=== PATIENT | male | born 1980 | race Caucasian/White ===

== ENCOUNTER 2023-10-17 14:08 | Outpatient (CLI) | payer BC, SELFPAY | END 2023-10-17 14:09 | disposition home or self-care (01) | LOC: NFLDREF 10-20 02:43 | PROVIDERS: PCP Physician Assistant Medical; Referring Provider Physician Assistant Medical; Visit Provider Physician Assistant Medical | DX: I10 Essential (primary) hypertension (principal); E66.9 Obesity, unspecified; B07.9 Viral wart, unspecified | CPT/HCPCS: 80053; 80061; 84443 ==

== ENCOUNTER 2024-02-06 02:52 | Emergency (ER) | payer BC, SELFPAY ==
[2024-02-06 02:58] VITALS: BP 191/110; PULSE 106; RESP 22; TEMP 36.4; O2SAT 96; BMI 38.0
[2024-02-06] MEDS: predniSONE 20 MG TABLET 40 MG PO (03:23)
[2024-02-06] MEDS: KETOROLAC 30 MG/ML inj IM (03:23)
--- NOTE | 2024-02-06 03:28 | ED.GENADULT ---
HPI - General Adult General Chief complaint: Back Injury/Pain Stated complaint: severe back pain Time Seen by Provider: 02/06/24 03:02 Source: patient Mode of arrival: ambulatory Limitations: no limitations History of Present Illness HPI narrative: 43-year-old male presents the emergency department for evaluation of lower back pain. This is been an ongoing problem for 22 years but has flared for the past 24 hours. No new trauma or injury. Has known degenerative disc disease and prior anterior compression fractures in the mid lumbar region. He attributes this to old skateboarding injuries. He also has cervical degenerative disease. He also smokes. No loss of bowel or bladder function, no saddle numbness. Pain is in the left paraspinal muscle lumbar area and radiates into the left inner thigh. This is not entirely new but is significantly worse than usual. No numbness. Has difficulty walking due to the pain but there is no jennifer weakness in his legs. No fever. No other areas of pain. Has been intermittently using Tylenol and ibuprofen with no improvement of symptoms. Triage nurse advised him to go to the emergency department, the rationale is unclear. Has not attempted to make a new appointment with his primary care provider. He has done physical therapy in the past though not recently. It sounds as though he has also been recommended to consider injections but has not done so. Past medical history notable for hypertension. Claims he has not taken his antihypertensive medications in a couple of days. Prescribed hydrochlorothiazide, losartan amlodipine. Allergy to penicillin. Smoker. ROS is notable for the musculoskeletal symptoms as above. Otherwise negative for other generalized, neurological, skin, musculoskeletal or urinary changes. Related Data Previous Rx's ?Medication ?Instructions ?Recorded amlodipine 5 mg tablet 5 mg PO QHS #90 tabs 10/17/23 hydrochlorothiazide 25 mg tablet 25 mg PO QAM #30 tabs 12/14/23 losartan 100 mg tablet 100 mg PO QDAY #30 tabs 12/14/23 prednisone 20 mg tablet 20 mg PO BID #10 tabs 02/06/24 Allergies Allergy/AdvReac Type Severity Reaction Status Date / Time Penicillins Allergy Mild Verified 10/17/23 13:36 [facility] Surgical History History of dental surgery ?Z92.89 - Personal history of other medical treatment (ICD-10) History of torsion of testis ?Z87.438 - Personal history of other diseases of male genital organs (ICD-10) Social History Little interest or pleasure in doing things: not at all Feeling down, depressed, or hopeless: not at all Exam Const: Vital Signs, click to edit/add: Vital Signs - 24 hr 02/06/24 02:58 Temperature 97.5 F L Pulse Rate [Pulse Oximeter] 106 H Respiratory Rate 22 Blood Pressure [Ri ght Upper Arm] 191/110 H Pulse Oximetry 96 Oxygen Delivery Me thod Room Air Documenting provider has reviewed patient's vital signs: yes Common normals: alert Other: Antalgic gait but fully alert, no signs of intoxication. Insight fair. HENMT: Common normals: normocephalic Head and scalp: normocephalic Face and sinus: normal facial exam Mouth: oral and palatal mucosa normal Throat: posterior oropharynx normal Eye: Common normals: conjunctivae normal General eye: normal appearance of both eyes Conjunctiva: conjunctiva(e) normal Resp: Common normals: normal respiratory effort Effort & inspection: able to speak in complete sentences Cardio: Common normals: regular rate and regular rhythm Rate: regular rate Rhythm: regular rhythm Back & Pelvis: Other: No point bony tenderness to the thoracolumbar spine. Left-sided paraspinal muscle and left SI tenderness noted. Patient refuses remainder of exam of flexion, extension, straight leg lift due to pain. I do observe that is legs are moving without any deficit both flexion and extension, he can balance without significant difficulty. Extremity: Other: Mild venous stasis changes but good capillary refill in legs. No open sores or ulcerations. Neuro: Sensorium/orientation: alert Other: Antalgic gait but without focal deficit. Psych: Attitude: calm Insight: fair Judgement: fair Skin: Common normals: no rashes or lesions noted General skin exam: no rashes or lesions noted Course Course ED Course: 43-year-old male presenting with left lumbar radiculopathy. No red flags for cauda equinus syndrome, neurovascular compromise or other emergent spinal syndrome. Counseled patient on exam findings and history. Additional x-ray and imaging will not be useful as we already know he has a herniated disc. He did drive himself here and does need to drive himself home. Because of this, I am limited on what I can give him in the emergency department. Will give prednisone 40 mg p.o. x1 and a shot of 30 mg of IM Toradol. From [facility], he will get oxycodone 4 tablets total and 20 tablets of 10 mg Flexeril. He is counseled on Tylenol and ibuprofen. He is going to need to make a follow-up appoint with his primary care provider in 2 days to ensure that things are starting to improve on the prednisone. Off work for 2 days. He will likely benefit from referral for physical therapy, injections and or other treatments. He is encouraged to quit smoking and the rationale is discussed. Alarm symptoms reviewed that would warrant ED presentation. He verbalizes understanding and agreement. Counseled not to take the oxycodone and Flexeril until he is safely home. Vital Signs Vital signs: Initial Vital Signs Temperature 97.5 F L 02/06/24 02:58 Temperature Source Temporal Artery Scan 02/06/24 02:58 Pulse Rate 106 H 02/06/24 02:58 Respiratory Rate 22 02/06/24 02:58 Blood Pressure 191/110 H 02/06/24 02:58 Blood Pressure Mean 137 H 02/06/24 02:58 Blood Pressure Position Standing 02/06/24 02:58 Pulse Oximetry 96 02/06/24 02:58 Oxygen Delivery Method Room Air 02/06/24 02:58 Vital Signs Temperature 97.5 F L 02/06/24 02:58 Pulse Rate 106 H 02/06/24 02:58 Respiratory Rate 22 02/06/24 02:58 Blood Pressure 191/110 H 02/06/24 02:58 Pulse Oximetry 96 02/06/24 02:58 Oxygen Delivery Method Room Air 02/06/24 02:58 Temperature 97.5 F L 02/06/24 02:58 Pulse Rate 106 H 02/06/24 02:58 Respiratory Rate 22 02/06/24 02:58 Blood Pressure 191/110 H 02/06/24 02:58 Pulse Oximetry 96 02/06/24 02:58 Oxygen Delivery Method Room Air 02/06/24 02:58 Medications Administered Medications: Generic Name Dose Route Start Last Admin Trade Name Freq PRN Reason Stop Dose Admin Ketorolac Tromethamine 30 mg 02/06/24 03:18 02/06/24 03:23 Ketorolac 30 Mg/Ml Inj IM 02/06/24 03:19 30 mg ONCE ONE Administration Prednisone 40 mg 02/06/24 03:18 02/06/24 03:23 Prednisone 20 Mg Tablet PO 02/06/24 03:19 40 mg ONCE ONE Administration Discharge Plan Discharge Clinical Impression: Lumbar radiculopathy Patient Disposition: Home, Self-Care Condition: Stable Instructions: Lumbar Radiculopathy (ED), Lower Back Exercises (ED) Additional Instructions: As we discussed, your history and the prior MRI that you describe to me does fit clinically with what you have going on today. Unfortunately, arthritis in your back will flare up from time to time. It is a good idea the you discuss a long-term plan with your primary care provider and have prednisone on hand for these flares that will come on more as you age. For the pain, continue using Tylenol 1000 mg every 6 hours and or ibuprofen 600 mg every 6 hours. I have given you a very small supply of oxycodone which will be the limit of the narcotic medications that we can give here in the ED. he will have 4 tablets of this, when they are gone, you would need further refills from her primary care provider but only if they feel it is appropriate. I will also prescribe some Flexeril which is a muscle relaxant. You may use this up to 2 times daily for pain. I would recommend heat. No work today which is Monday. Attempt to return on Monday if able. Ongoing work clearance will need to come from her primary care doctor as well. We cannot clear you in the emergency department as we do not have continued follow-up with you to determine when is appropriate for you to return to work. Most importantly, we will start on prednisone. Prednisone as an anti-inflammatory medication that will help calm down some of the inflammation. This will not cure the arthritis in her back but it will hopefully reduce the swelling on the nerve to the point where was a few days ago, reducing her pain. It tends to take 1-2 days to provide relief. I will send a prescription for this to your local pharmacy. The dose you were given here in the ED will count as this morning's dose. Take another dose this afternoon, but not after 4:00 p.m.. Continue taking this twice daily for the next 5 days total. Follow-up with your primary care doctor in 2-3 days to ensure that things are improving. You will need a referral to physical therapy, better long-term planning for what to do with these flares and medication to have on hold at a pharmacy or on hand for when you get flares in the future. With arthritis in the back, you do tend to get worsening symptoms as you age. Consideration of referral for injections or other long-term treatment can also be considered. Additional x-rays performed in the emergency department will not change our course of action. Activity Level: Activity as Tolerated Discharge Diet: Regular Prescriptions: New prednisone 20 mg tablet 20 mg PO BID Qty: 10 0RF No Action amlodipine 5 mg tablet 5 mg PO QHS Qty: 90 0RF hydrochlorothiazide 25 mg tablet 25 mg PO QAM Qty: 30 0RF losartan 100 mg tablet 100 mg PO QDAY Qty: 30 0RF Follow Up/Referrals: Lissette Knight PA-C [Primary Care Provider] - Stand Alone Forms: [employer] Info Instructions
== END 2024-02-06 03:34 | disposition home or self-care (01) ==
PROVIDERS: Emergency Provider Family Medicine; PCP Physician Assistant Medical
DX: M54.16 Radiculopathy, lumbar region (principal)
CPT/HCPCS: 96372; 99283; J1885; J7512

== ENCOUNTER 2024-04-10 13:33 | Emergency (ER) | payer OTHER, SELFPAY ==
--- OUTSIDE RECORDS SUMMARY | 2024-04-10 13:36 | XMS_ITS | Encounter Summary ---
Author Organization [employer] Address [address] [place] [address] Care Team Providers Care Sack Department Supervisor Name Role Phone Ashok Eisenberg MD Primary Care Provider + [phone] Reason for Referral * Procedure/Equipment (Routine) - Incomplete Specialty Diagnoses / Procedures Referred By Contdora t Referred To Contact Diagnoses Cough, unspecified type SOB (shortness of breath) Procedures XR Chest 2 Views Adrian Hayes, NICOLE, PHLEBOTOMY MANAGER [address] [place] [address] Referral ID Status Reason Start Date Expiration Date V isits Requested Visits Authorized [id number] Incomplete 04/07/2024 07/07/2025 1 1 S CLEANER Reason for Visit * Reason Comments SOB (SHORTNESS OF BREATH) SOB came on , getting worse as of this morning, cough began yesterday, came on suddenly, no fever Denies chest pain, no cardiac hx Encounter Details Date Type Department Care Team (Late st Contact Info) Description 04/07/2024 9:40 AM BRASS CLEANER Office Visit [place] [facility] [address] [place] [phone] Adrian Hayes, NICOLE, PHLEBOTOMY MANAGER [address] [place] [address] Cough, unspecified type; SOB (shortness of breath) Social History Tobacco Use Types Packs/Day Years Used Date Smoking Tobacco: Never Smokeless Tobacco: Never Alcohol Use Standard Drinks/Week Comments No 0 (1 standard drink = 0.6 oz pur e alcohol) Haven't drank for a few months Sex and Gender Information Value Date Recorded Sex Assigned at Not on file Gender Identity Not on file Sexual Orientation Not on file documented as of this encounter Last Filed Vital Signs Vital Sign Reading Time Taken Comments Blood Pressure 136/81 04/07/2024 8:48 AM BRASS CLEANER Pulse 102 04/07/2024 8:48 AM BRASS CLEANER Temperature 37.4 C (99.3 F) 04/07/2024 8:48 AM BRASS CLEANER Respiratory Rate 20 04/07/2024 8:48 AM BRASS CLEANER Oxygen Saturation 93% 04/07/2024 8:48 AM BRASS CLEANER Inhaled Oxygen Concentration - - Weight - - Height - - Body Mass Index - - documented in this encounter Patient Instructions * Patient Instructions* Adrian Hayes, NICOLE, PHLEBOTOMY MANAGER - 04/07/2024 9:40 AM BRASS CLEANER *You may use gjwp-lfj-mhophqw cough and cold medicine such as DayQuil and NyQuil or their generic equivalents. (Remember that these medications often contain acetaminophen. You should not exceed 4000mg of acetaminophen daily) *You may also add in ibuprofen for any body aches. *For nasal congestion you may add and pseudoephedrine (short acting) (4 yrs +).. *Often even if you do not have known allergies there may be a allergy component and try an hqea-mio-zjdbqgu antihistamine such as Zyrtec, Lois, Xyzal, or Claritin (6 months +) can help. *You may also try Flonase (fluticasone) or similar (2 yrs +) . *Cough drops and throat lozenges as well as sprays can help if you have sore throat. *Nasal saline rinse. Vicks Vaporub *Viral illnesses frequently last a minimum of 5-7 days and often can last with lingering symptoms up to 2 weeks or more. Viral illnesses can also change. Follow up with primary care in 5-7 days if noimprovement or sooner if worsening. S CLEANER documented in this encounter Progress Notes * Adrian Hayes APRN, CNP - 04/07/2024 9:40 AM CST sIh Potts is a 44 y.o.male presents to the Urgent Care for SOB (SHORTNESS OF BREATH) (SOB came on yesterday, getting worse as of this morning, cough began yesterday, came on suddenly, no fever //Denies chest pain, no cardiac hx ) Subjective: Ish Potts is a 44 y.o. male presents for evaluation of shortness of breath and cough that started yesterday. He was advised by the nurse line to come in. Is a smoker. Does not have a history ofasthma. Does not report any significant fever feelings. No chest pain. Denies any cardiac history. No other concerns or complaints. Review of Systems: Review of systems otherwise negative unless noted in the HPI Medical History: Patient Active Problem List Diagnosis Episodic mood disorder (HRC) Amphetamine misuse Suicidal ideation Psychosis (HRC) Cannabis use disorder, severe, dependence (HRC) Asperger's syndrome Attention deficit hyperactivity disorder (ADHD), combined type (HRC) Behavior concern Depression with anxiety (HRC) Hypertension (HRC) Tourette's syndrome Thoracic radiculopathy Migraine headache GERD (gastroesophageal reflux disease) Social History: Social History Tobacco Use Smoking status: Never Smokeless tobacco: Never Substance Use Topics Alcohol use: No Comment: Haven't drank for a few months Adverse Drug Reactions: Lisinopril and Penicillins Medications: amLODIPine, citalopram, hydroCHLOROthiazide, losartan, melatonin, and risperiDONE Physical exam: Patient Vitals for the past 24 hrs: BP Temp Temp src Pulse Resp SpO2 04/07/24 0848 136/81 37.4 ??C (99.3 ??F) Tympanic (!) 102 20 93 % General: Alert, No obvious discomfort, well kept , obese HENT: Normal voice, No tonsillar enlargement, No lymphadenopathy, and Postnasal drainage, BilateralTM's with in normal, Mild congestion Eyes: Conjunctiva normal, No scleral icterus Neck: Normal range of motion, No menigismus CV: Normal Pulses Resp: Non-labored, Occasional and Dry cough Normal work of breathing and Decreased breath sounds throughout no wheezing. MS: Normal muscular tone, moves all extremities Skin: No rash or acute skin lesions noted Neuro: Speech is normal and fluent Psych: Awake. Alert. Normal affect. Appropriate interactions. Good eye contact Labs: LABS: No results found for any visits on 04/07/24. IMAGING: XR Chest 2 Views Result Date: 04/07/2024 COMPARISON: None. FINDINGS: Normal cardiomediastinal silhouette and pulmonary vasculature. The lungs appear clear. No pneumothorax or pleural effusion. Bony thorax is unremarkable. Images ordered and were independently reviewed. No acute infiltrate. Agree with radiologic over-read.. Patient feels somewhat improved after nebulizer. Breath sounds clear throughout. Still decreased. Likely due to body habitus. ASSESSMENT: MDM: The patient presents with symptoms and exam findings most consistent with uncomplicated viral upperrespiratory tract infection without evidence of respiratory compromise, clinical toxicity, or clinical dehydration. No findings to suggest severe sinusitis. Due to duration of symptoms and worsening of cough CXR was obtained and was Negative. Symptomatic and supportive care were discussed. Antibiotics not necessary at this time. A prescription for albuterol was provided. Follow-up with primary doctor was recommended should symptoms persist, and return should symptoms worsen. The patient should also return for signs of respiratory distress, dehydration, high fevers, severe facial pain, facial swelling, or for any other questions or concerns. Understanding of the discharge instructions was confirmed. Diagnosis and Associated Orders ICD-10-CM 1. Cough, unspecified type R05.9 albuterol 2.5 mg/3 mL (0.083%) (PROVENTIL) nebulizer solution 2.5 mg XR Chest 2 Views 2. SOB (shortness of breath) R06.02 albuterol 2.5 mg/3 mL (0.083%) (PROVENTIL) nebulizer solution 2.5 mg XR Chest 2 Views PLAN: There are no Patient Instructions on file for this visit. Orders Placed This Encounter Medications hydroCHLOROthiazide (ORETIC) 25 MG tablet Sig: Take 1 Tablet (25 mg) by mouth every morning. amLODIPine (NORVASC) 5 MG tablet Sig: Take 1 Tablet (5 mg) by mouth daily at bedtime. albuterol 2.5 mg/3 mL (0.083%) (PROVENTIL) nebulizer solution 2.5 mg We discussed contagiousness. You may use xqlz-bmz-kvfxcvb cough and cold medicine such as DayQuil and NyQuil or their generic equivalents. For nasal congestion you may add and pseudoephedrine (short acting). Often even if you do not have known allergies there may be a allergy component and try an ov jd-nmb-wukwqsi antihistamine such as Zyrtec, Lois, Xyzal, or Claritin can help. You may also tryFlonase (fluticasone). You may also add in ibuprofen for any body aches. Cough drops and throat lozenges as well as sprays can help if you have sore throat. Nasal saline rinse. Vicks Vaporub The patient was discharged ambulatory and in stable condition. If strep, COVID, or influenza testing was initiated. You will receive a call with any results that would require antibiotics. Otherwise follow-up on my chart. S CLEANER documented in this encounter Nursing Notes * Yojana Lucas RN - 04/07/2024 9:40 AM CST Ish Potts is a 44 y.o.male presents to the Urgent Care for SOB (SHORTNESS OF BREATH) (SOB came on yesterday, getting worse as of this morning, cough began yesterday, came on suddenly, no fever //Denies chest pain, no cardiac hx ) S CLEANER documented in this encounter Plan of Treatment Not on file documented as of this encounter Results * XR Chest 2 Views (04/07/2024 9:59 AM BRASS CLEANER) Anatomical Region Laterality Modality Chest, Lung Digital Radiogra phy 04/07/2024 9:54 AM BRASS CLEANER Narrative 04/07/2024 10:00 AM BRASS CLEANER COMPARISON: None. FINDINGS: Normal cardiomediastinal silhouette and pulmonary vasculature. The lungs appear clear. No pneumothorax or pleural effusion. Bony thorax is unremarkable. Procedure Note Christos Zuniga MD - 01/05/2025 COMPARISON: None. FINDINGS: Normal cardiomediastinal silhouette and pulmonary vasculature.The lungs appear clear. No pneumothorax or pleural effusion. Bony thoraxis unremarkable. Adrian Hayes APRN, PHLEBOTOMY MANAGER [facility] documented in this encounter Visit Diagnoses Diagnosis Cough, unspecified type SOB (shortness of breath) Shortness of breath Cough, unspecified type SOB (shortness of breath) Shortness of breath documented in this encounter Administered Medications Inactive Administered Medications - up to 3 most recent administrations Medication Order MAR Action Action Date Dose Rate Site albuterol 2.5 mg/3 mL (0.083%) (PROVENTIL) nebulizer solution 2.5 mg 2.5 mg, Inhalation, ONCE, On 04/07/24 at 1000, For 1 dose, Administer VIA RT Nebulization Given 04/07/2024 9:46 AM BRASS CLEANER 2.5 mg documented in this encounter Care Teams Sack Department Supervisor Relationship Specialty Start Date End Date Ashok Eisenberg MD [address] [place] [id number] PCP - General 06/30/20 documented as of this encounter
--- OUTSIDE RECORDS SUMMARY | 2024-04-10 13:36 | XMS_ITS | Clinical Summary ---
Author Organization [facility] Address [address] [place] [address] Care Team Providers Care Salesperson Floor Coverings Name Role Phone [facility] Primary Care Provide r Ashok Eisenberg MD Unavailable Allergies Active Allergy Reactions Criticality Noted Date Comments Hydrocodone 04/12/2018 Lisinopril Nausea 04/12/2018 Penicillins Rash Low 04/12/2018 Medications losartan (COZAAR) 100 MG tablet Take 100 mg by mouth daily Active citalopram (CELEXA) 40 MG tablet Take 40 mg by mouth daily Active prazosin (MINIPRESS) 1 MG capsuleIndicati ons:PTSD (post-traumatic stress disorder) Take 1 capsule (1 mg) by mouth At Bedtime 30 capsule 04/16/2018 Active OLANZapine (ZYPREXA) 10 MG tabletIndicatio ns:Autistic disorder, residual state,PTSD (post-traumatic stress disorder) Take 1 tablet (10 mg) by mouth 3 times daily as needed (anxiety, sleep) 90 tablet 04/16/2018 Active risperiDONE (RISPERDAL) 1 MG tabletIndicatio ns:Autistic disorder, residual state,PTSD (post-traumatic stress disorder) Take 1 tablet (1 mg) by mouth At Bedtime 30 tablet 04/16/2018 Active Active Problems Problem Noted Date Diagnosed Date Behavior concern 04/13/2018 Family History Medical History Relation Comments Suicide Father Anxiety Disorder Mother Depression Mother Anxiety Disorder Son Attention Deficit Disorder Son Autism Spectrum Disorder Son Relation Status Comments Father Mother Son Social History Tobacco Use Types Packs/Day Years Used Date Smoking Tobacco: Never Smokeless Tobacco: Never Alcohol Use Standard Drinks/Week Comments No 0 (1 standard drink = 0.6 oz pur e alcohol) AUDIT-C Answer Date Recorded Frequency of Alcohol Consumption Never 04/12/2018 Average Number of Drinks Not on file 019 Frequency of Binge Drinking Not on file 04/03 Sex and Gender Information Value Date Recorded Sex Assigned at Not on file Legal Sex Male 3:39 AM REFRIGERATION MECHANIC HELPER Gender Identity Not on file Sexual Orientation Not on file Last Filed Vital Signs Vital Sign Reading Time Taken Comments Blood Pressure 139/98 04/16/2018 3:58 PM REFRIGERATION MECHANIC HELPER Pulse 102 04/16/2018 3:58 PM REFRIGERATION MECHANIC HELPER Temperature 36.7 C (98 F) 04/16/2018 3:58 PM REFRIGERATION MECHANIC HELPER Respiratory Rate 16 04/16/2018 3:58 PM REFRIGERATION MECHANIC HELPER Oxygen Saturation 97% 04/14/2018 4:09 PM REFRIGERATION MECHANIC HELPER Inhaled Oxygen Concentration - - Weight 102.1 kg (225 lb) 04/14/2018 8:00 AM REFRIGERATION MECHANIC HELPER Height - - Body Mass Index - - Plan of Treatment Not on file Advance Directives For more information, please contact: [phone] * Full Code (Latest Code Status on File) Date Activated Date Inactivated Comments 04/16/2018 10:58 AM Question Answer Comments Code status determined by: Discussion with edna nt/legal decision maker * Full Code Date Activated Date Inactivated Comments 04/13/2018 4:21 AM 04/16/2018 10:58 AM Question Answer Comments Code status determined by: Discussion with edna nt/legal decision maker Care Teams Salesperson Floor Coverings Relationship Specialty Start Date End Date [facility], [facility] [place] [address] PCP - General 04/12/18 Ashok Eisenberg MD [facility] [place] [address] [facility] [address] [place] [address] PCP - Mental Health/Behavioral Medicine Psychiatry 04/14/18
--- OUTSIDE RECORDS SUMMARY | 2024-04-10 13:36 | XMS_ITS | Encounter Summary ---
Author Organization [facility] Address [address] [place] [address]. [place] [address] Care Team Providers Care Senior Civil Engineer Name Role Phone Clinic, [facility] Primary Care Provide r Ashok Eisenberg MD Unavailable Reason for Visit * Reason Onset Date Comments MH/CD Inpatient 04/12/2018 Encounter Details Date Type Department Care Team ([facility] st Contact Info) Description 04/12/2018 Telephone [facility] Behavioral Health Intake [address] [place] [phone] Generic, Behavioral Intake, MD MH/CD Inpatient Social History Tobacco Use Types Packs/Day Years [...] on file Legal Sex Male 3:39 AM FIRE FIGHTERS DISPATCHER Gender Identity Not on file Sexual Orientation Not on file documented as of this encounter Miscellaneous Notes * Telephone Encounter - Joseph Danielle - 04/12/2018 10:58 PM FIRE FIGHTERS DISPATCHER S: DEC called at [address] a 38 y/o male for inpatient mental health treatment. B: Pt was BIB EMS for evaluation of psychosis. Pt's girlfriend called patients parents to tell themthat pt was out of control, he had drank a whole bottle of CBD oil. Parents picked up the pt and attempted to bring him to the ED but pt was behaving erratically in the car and was attempting to interfere with the taxi cab driver. Pt's parents pulled over and called EMS to have pt brought to the ED. Pt appears disorganized and psychotic in the ED. Pt talking in gibberish. UDS is positive for cannabinoids.Pt has been medically cleared. A: Emergency Hold. R: 12/[place]. Unit notified at 2302, RN states that overnight RN will determine time of admission. ED notified at 2310. FIGHTERS DISPATCHER documented in this encounter Plan of Treatment Not on file documented as of this encounter Visit Diagnoses Not on filedocumented in this encounter Care Teams Senior Civil Engineer Relationship Specialty Start Date End Date Clinic, [facility]ja Patel [address] [place] [phone] PCP - General 04/12/18 Ashok Eisenberg MD [facility] [address] [facility] [address] [place] [address] PCP - Mental Health/Behavioral Medicine Psychiatry 04/14/18 documented as of this encounter
--- OUTSIDE RECORDS SUMMARY | 2024-04-10 13:36 | XMS_ITS | Clinical Summary ---
Author Organization [facility] Address [place], [place] [address] Care Team Providers Care Supervisor Feed House Name Role Phone Pcp, No Primary Care Provider Unavailabl e Allergies Active Allergy Reactions Criticality Noted Date Comments Lisinopril Nausea Only 07/08/2011 Penicillins Rash 01/16/2007 Hydrocodone-Acetaminophen Other - Descri be In Comment Field 07/08/2011 Jittery Medications citalopram (CELEXA) 40 mg tabletIndication s:Depression with anxiety,Asperger 's syndrome Take 1 tablet by mouth every morning. 0 10/18/2017 Active Melatonin 5 mg tab Take 5 mg by mouth. Active OLANzapine (ZYPREXA, FILM COATED TABLET,) 10 mg tablet Take 2.5 mg by mouth. 04/16/2018 Active buPROPion (WELLBUTRIN XL) 300 mg Extended-Release tablet TAKE 1 TABLET BY MOUTH IN THE MORNING 11 11/01/2018 Active losartan (COZAAR) 100 mg tabletIndication s:Hypertension, unspecified type Take 1 tablet by mouth once daily 30 tablet 09/05/2019 Active Active Problems Problem Noted Date Diagnosed Date Tourette's syndrome 03/08/2017 Insomnia 09/16/2016 Attention deficit hyperactiv ity disorder (ADHD), combined type 09/02/2016 Asperger's syndrome 09/02/2016 Thoracic radiculopathy 08/26/2015 GERD (gastroesophageal reflux disease) 4 Depression with anxiety 08/08/2013 Migraine, unspecified, witho ut mention of intractable migraine without mention of status migrainosus 06/22/2010 Hypertension 06/30/2008 Immunizations Name Administration Dates Next Due Tdap 07/06/2011,01/16/2007 Family History Medical History Relation Name Comments Hypertension Maternal Grandmother Hypertension Paternal Grandfather Hypertension Paternal Grandmother Lupus Sister 1 Rheum arthritis Sister 1 Depression Son 1 Relation Name Status Comments Brother Alive Father Maternal Grandfather Maternal Grandmother Alive Mother Alive Paternal Grandfather Alive Paternal Grandmother Alive Sister 1 Alive Sister 2 Alive Son 1 Alive Son 2 Alive Social History Tobacco Use Types Packs/Day Years Used Date Smoking Tobacco: Former Cigarettes Q uit: 05/10/2001 Smokeless Tobacco: Never Tobacco Cessation:Counseling Given: Yes Alcohol Use Standard Drinks/Week Comments No 0 (1 standard drink = 0.6 oz pur e alcohol) social PHQ-2 Answer Date Recorded PHQ-2 Score 0 06/04/2018 Sex and Gender Information Value Date Recorded Sex Assigned at Not on file Legal Sex Male 7:02 AM MANAGER TALENT Gender Identity Not on file Sexual Orientation Not on file Occupation Industry Job Start Date Job End Date Not on file Not on file Not on file Not on file Obstetrics History Last Filed Vital Signs Vital Sign Reading Time Taken Comments Blood Pressure 140/90 02/21/2019 1:19 PM MANAGER TALENT Pulse 84 02/21/2019 1:19 PM MANAGER TALENT Temperature 36.7 C (98.1 F) 02/27/2017 4:53 PM MANAGER TALENT Respiratory Rate 16 02/21/2019 1:19 PM MANAGER TALENT Oxygen Saturation 98% 07/06/2017 8:53 AM CDT Inhaled Oxygen Concentration - - Weight 108.9 kg (240 lb) 02/21/2019 1:19 PM MANAGER TALENT Height 177.8 cm (5' 10) 02/21/2019 1:19 PM MANAGER TALENT Body Mass Index 34.44 02/21/2019 1:19 PM MANAGER TALENT Plan of Treatment Health Maintenance Due Date Last Done Comments HIV for age 15-65 1995 Hepatitis C screening for age 18-79 1998 Depression screening for age 12+ 04/13/2019 04/13/2018, 04/11/2018, 10/18/2017, Additional history exists Lipids for age 35-44 05/20/2019 05/20/2014, 05/20/2014, 08/08/2013 BMI (ht and wt on same day) for age 18+ 02/22/2020 02/21/2019, 04/11/2018, 10/18/2017, Additional history exists Tetanus booster 07/05/2021 07/06/2011, 01/16/2007 COVID-19 vaccine series (2023- season) 2023 Influenza for age 9-49 12/03/2023 Tdap Completed 07/06/2011, 01/16/2007 Pneumococcal series for age 6-49 Aged Out No longer eligible based on patient's age to complete this topic Goals Goal Patient Goal Type Associated Problems Recent Progress Patient-Stated? Author BLOOD PRESSURE - MAINTAINS BP less than 140/90 Blood Pressure No Hemant Mccauley MD Procedures Procedure Name Priority Date/Time Associated Diagnosis Comments LIPID PANEL W REFLEX MEASURED LDL Routine 05/20/2014 10:13 AM MANAGER TALENT Hyperlipidemia from Last 3 Months or Most Recently Relevant to Health Maintenance Results * (ABNORMAL) LIPID PANEL W REFLEX MEASURED LDL (05/20/2014 10:13 AM MANAGER TALENT) CHOLESTEROL,TOTAL 238(H) 100 - 199 mg/dL 05/20/2014 11:04 AM [facility] TRIGLYCERIDES 498(H) <150 mg/dL 05/20/2014 11:04 AM [facility] HDL CHOLESTEROL 36(L) >40 mg/dL 5 11:04 AM [facility] NON-HDL CHOLESTEROL 202(H) <145 mg/dl 05/20/2014 11:04 AM [facility] CHOL/HDL RATIO 6.61(H) <4.50 05/20/2014 11:04 AM [facility] LDL CHOLESTEROL 5 11:04 AM [facility] Comment:Invalid LDL when Tri g >400, reflexed to measured LDL PATIENT STATUS NON-FASTI NG 05/20/2014 11:04 AM [facility] Blood specimen (specimen) BLOOD SPECIMEN / Unknown Venipuncture / Unknown 05/20/2014 10:13 AM MANAGER TALENT 05/20/2014 10:14 AM MANAGER TALENT us Hemant Mccauley MD CHEMISTRY Final Resul t [facility] [address] [place] [address], [place] [phone] from Last 3 Months or Most Recently Relevant to Health Maintenance Insurance FED EMP FED EMP * Guarantor: TOSHA RYAN ONLY Account Type Relation to Patient Date of Phone Billing Address [facility] [address] [place] [address] * Guarantor: ARCHIE DOMÍNGUEZ Account Type Relation to Patient Date of Phone Billing Address [facility] [address] [address] * Guarantor: TOSHA YOUNG Account Type Relation to Patient Date of Phone Billing Address [facility] [address] [place] [address] Care Teams Supervisor Feed House Relationship Specialty Start Date End Date Pcp, No . PCP - General 07/10/20
--- OUTSIDE RECORDS SUMMARY | 2024-04-10 13:36 | XMS_ITS | Encounter Summary ---
Author Organization [facility] Address [address] [place] [address] Care Team Providers Care Data Mining Analyst Name Role Phone Ashok Eisenberg MD Primary Care Provider + [phone] Reason for Visit * Reason Comments SOB (SHORTNESS OF BREATH) Encounter Details Date Type Department Care Team (Late st Contact Info) Description 04/07/2024 Nurse Triage [facility] [address] [facility] [address] [place] [address] Needs Pcp, [place], [place] [id number] SOB (SHORTNESS OF BREATH) Social History Tobacco Use Types Packs/Day Years [...] on file documented as of this encounter Nursing Notes * Gina Ortiz RN - 04/07/2024 8:16 AM CST Reason for Disposition [1] MODERATE difficulty breathing (e.g., speaks in phrases, SOB even at rest, pulse 100-120) AND [2] NEW-onset or WORSE than normal Protocols used: Breathing [id number] Pt called states that he developed a cough and now has shortness of breath. Pt states that he is unable to take a deep breath and he feels lightheaded. Pt agrees with the plan to be seen now. ENTER MOLD * Roxi Gagnon - 04/07/2024 8:12 AM CST Symptoms Describe your symptoms (if pain, include location): Cough and SOB When did they start? Yesterday Additional comments (related to the above concern): Is it okay to leave a detailed message on your voicemail? Yes Insurance verified and confirmed with patient? Insurance/information not available at time of the call ENTER MOLD documented in this encounter Plan of Treatment Not on file documented as of this encounter Visit Diagnoses Not on filedocumented in this encounter Care Teams Data Mining Analyst Relationship Specialty Start Date End Date Ashok Eisenberg MD [address] [place] [address] PCP - General 06/30/20 documented as of this encounter
--- OUTSIDE RECORDS SUMMARY | 2024-04-10 13:36 | XMS_ITS | Encounter Summary ---
Author Organization [facility] Address [address] [place] [address] Care Team Providers Care Recyclable Products Sorter Name Role Phone Clinic, [facility] Primary Care Provide r Ashok Eisenberg MD Unavailable [phone] Reason for Visit * Reason Onset Date Comments Outpatient 04/16/2018 IOP ref from Encounter Details Date Type Department Care Team (Late st Contact Info) Description 04/16/2018 Telephone [facility] Behavioral Health Intake [address] [place] [phone] Generic, Behavioral Intake, Outpatient (IOP ref from ) Social History Tobacco Use Types Packs/Day Years [...] on file Legal Sex 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 B-Pt was admitted to [facility] under Dr Arzate's care. A-IOP referral. Discharged today. R-[place] benefits. Referral made to IOP. RAL PROCESSING TECHNICIAN documented in this encounter Plan of Treatment Not on file documented as of this encounter Visit Diagnoses Not on filedocumented in this encounter Care Teams Recyclable Products Sorter Relationship Specialty Start Date End Date Clinic, [facility] [place] [facility] [place], [place] [phone] PCP - General 04/12/18 Ashok Eisenberg MD [facility] [address] [facility] [address] [place] [address] PCP - Mental Health/Behavioral Medicine Psychiatry 04/14/18 documented as of this encounter
--- OUTSIDE RECORDS SUMMARY | 2024-04-10 13:36 | XMS_ITS | Encounter Summary ---
Author Organization [facility] Address [address] [place] [address] Care Team Providers Care Supervisor Riprap Placing Name Role Phone Ashok Eisenberg MD Primary Care Provider + [phone] Encounter Details Date Type Department Care Team (Late st Contact Info) Description 04/09/2018 Consent for Procedure/Treatme nt [facility] INFORMED CONSENT NEUROLEPTIC MEDICATIONS Social History Tobacco Use Types Packs/Day Years [...] on file documented as of this encounter Plan of Treatment Not on file documented as of this encounter Visit Diagnoses Not on filedocumented in this encounter Care Teams Supervisor Riprap Placing Relationship Specialty Start Date End Date Ashok Eisenberg MD [address] [place] [address] PCP - General 06/30/20 documented as of this encounter
--- OUTSIDE RECORDS SUMMARY | 2024-04-10 13:36 | XMS_ITS | Clinical Summary ---
Author Organization [facility] Address [address] [place] [address] Care Team Providers Care Preassembler And Inspector Name Role Phone Ashok Eisenberg MD Primary Care Provider + [phone] Source Comments You are receiving this document as you are listed as the primary care provider,follow-up provider, or the patient has been referred to you for consultation.This is in compliance with the Medicare and[facility] Cent[facility]aid EHR Incentive Program,which states Providers who transition their patient to another setting of careor provider of care or refers their patient to another provider of care shouldprovide summary care record for each transition of care or referral. [employer] Allergies Active Allergy Reactions Criticality Noted Date Comments Lisinopril Other, see comments 12/07/2015 Flushed face Penicillins Rash 12/07/2015 Medications Medication Sig Dispensed Refills Start Date End Date Status citalopram (CELEXA) 40 MG tablet Take 40 mg by mouth daily. Active losartan (COZAAR) 100 MG tablet Take 1 Tablet (100 mg) by mouth daily. Active melatonin 5 MG tablet Take 1 Tablet (5 mg) by mouth at bedtime as needed. Active risperiDONE (RISPERDAL) 1 MG tabletIndications:M ood Take 1 Tablet by mouth daily at bedtime. Indications: Mood 30 Tablet 04/11/2018 Active Additional Information Patient not taking.Reported on 04/07/2024 hydroCHLOROthiazide (ORETIC) 25 MG tablet Take 1 Tablet (25 mg) by mouth every morning. 04/05/2024 Active amLODIPine (NORVASC) 5 MG tablet Take 1 Tablet (5 mg) by mouth daily at bedtime. 10/18/2023 Active ALBUterol sulfate HFA 108 (90 Base) MCG/ACT inhaler Inhale 1-2 Puffs every 4 hours as needed for Wheezing. 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 Suicidal ideation 02/28/2017 Asperger's syndrome 09/02/2016 Attention deficit hyperactiv ity disorder (ADHD), combined type 09/02/2016 Thoracic radiculopathy 08/26/2015 Depression with anxiety 08/08/2013 GERD (gastroesophageal reflux disease) 4 Migraine headache 06/22/2010 Hypertension 06/30/2008 Encounters Date Type Department Care Team Description 04/07/2024 9:45 AM MINIATURE TRAIN DRIVER Ancillary Procedure [facility] [address] [place] [address] Adrian Hayes, TONE REGULATOR, MICROCHIP SPECIALIST Cough, unspecified type; SOB (shortness of breath) 04/07/2024 9:40 AM MINIATURE TRAIN DRIVER Office Visit [facility] [address] [facility] [address] [place] [phone] Adrian Hayes, TONE REGULATOR, MICROCHIP SPECIALIST Cough, unspecified type; SOB (shortness of breath) 04/07/2024 Nurse Triage [facility] [address] [facility] [address] [place] [phone] Needs Pcp, Assignment SOB (SHORTNESS OF BREATH) from Last 3 Months Immunizations Name Administration Dates Next Due Tdap 07/06/2011 Social History Tobacco Use Types Packs/Day Years [...] Comments Blood Pressure 136/81 04/07/2024 8:48 AM MINIATURE TRAIN DRIVER Pulse 102 04/07/2024 8:48 AM MINIATURE TRAIN DRIVER Temperature 37.4 C (99.3 F) 04/07/2024 8:48 AM MINIATURE TRAIN DRIVER Respiratory Rate 20 04/07/2024 8:48 AM MINIATURE TRAIN DRIVER Oxygen Saturation 93% 04/07/2024 8:48 AM MINIATURE TRAIN DRIVER Inhaled Oxygen Concentration - - Weight 100.7 kg (222 lb) 04/09/2018 7:33 PM MINIATURE TRAIN DRIVER Height 177.8 cm (5' 10) 04/09/2018 7:33 PM MINIATURE TRAIN DRIVER Body Mass Index 31.85 04/09/2018 7:33 PM MINIATURE TRAIN DRIVER Plan of Treatment Health Maintenance Due Date Last Done Comments Hep C Screening (Preventive Services) 1980 HIV Screening (Preventive Services) 1996 Adult Preventive Visit 1998 HepB (1) 1999 Cholesterol 2015 COVID-19 Vaccine (2 - 2023-2 5 season) 2023 08/12/2020 Influenza (#1) 2023 Zoster/Shingles (1 of 2) 2030 DTaP/Tdap/Td (4 - Tdap) 09/11/2033 09/12/19 24, 07/06/2011, 01/16/2007 HepA Aged Out 07/22/2020 No longer eligi ble based on patient's age to complete this topic HPV Vaccine Aged Out No longer eligi ble based on patient's age to complete this topic Hib Aged Out No longer eligi ble based on patient's age to complete this topic IPV (Polio) Aged Out No longer eligi ble based on patient's age to complete this topic MCV4 Aged Out No longer eligi ble based on patient's age to complete this topic Pneumococcal Aged Out No longer eligi ble based on patient's age to complete this topic Procedures Procedure Name Priority Date/Time Associated Diagnosis Comments XR CHEST 2 VIEWS STAT 04/07/2024 9:59 AM MINIATURE TRAIN DRIVER Cough, unspecified type SOB (shortness of breath) from Last 3 Months Results * XR Chest 2 Views (04/07/2024 9:59 AM MINIATURE TRAIN DRIVER) Anatomical Region Laterality Modality Chest, Lung Digital Radiogra phy 04/07/2024 9:54 AM MINIATURE TRAIN DRIVER Narrative 04/07/2024 10:00 AM MINIATURE TRAIN DRIVER COMPARISON: None. FINDINGS: Normal cardiomediastinal silhouette and pulmonary vasculature. The lungs appear clear. No pneumothorax or pleural effusion. Bony thorax is unremarkable. Procedure Note Christos Zuniga MD - 04/07/2024 COMPARISON: None. FINDINGS: Normal cardiomediastinal silhouette and pulmonary vasculature.The lungs appear clear. No pneumothorax or pleural effusion. Bony thoraxis unremarkable. Adrian Hayes TONE REGULATOR, MICROCHIP SPECIALIST RAD GD from Last 3 Months Advance Directives * Full Code (Latest Code Status on File) Date Activated Date Inactivated Comments 04/09/2018 6:38 PM 04/11/2018 2:22 PM * Full Code Date Activated Date Inactivated Comments 02/28/2017 2:58 PM 03/03/2017 2:57 PM Care Teams Preassembler And Inspector Relationship Specialty Start Date End Date Ashok Eisenberg MD [address] [place] [address] PCP - General 06/30/20
--- OUTSIDE RECORDS SUMMARY | 2024-04-10 13:36 | XMS_ITS | Encounter Summary ---
Author Organization [facility] Address [address] [place] [address] Care Team Providers Care Drywall Application Supervisor Name Role Phone Ashok Eisenberg MD Primary Care Provider + [phone] Encounter Details Date Type Department Care Team (Late st Contact Info) Description 04/09/2018 Hospital [facility] RH USE OF RESTRAINTS/ALTERNATIVES PATIENT/FAMILY ED Social History Tobacco Use Types Packs/Day Years [...] on filedocumented in this encounter Care Teams Drywall Application Supervisor Relationship Specialty Start Date End Date Ashok Eisenberg MD [address] [place] [address] PCP - General 06/30/20 documented as of this encounter
--- OUTSIDE RECORDS SUMMARY | 2024-04-10 13:36 | XMS_ITS | Encounter Summary ---
Author Organization [facility] Address [address] [place] [address] Care Team Providers Care Boiler Installer Name Role Phone Ashok Eisenberg MD Primary Care Provider + [phone] Encounter Details Date Type Department Care Team (Late st Contact Info) Description 12/19/2016 Scanned History External to External, [place] [address] [facility] Social History Tobacco Use Types Packs/Day Years Used Date Smoking Tobacco: Never Smokeless Tobacco: Never Alcohol Use Standard Drinks/Week Comments Yes 0 (1 standard drink = 0.6 oz pur e alcohol) Sex and Gender Information Value Date Recorded Sex Assigned at Not on file Gender Identity Not on file Sexual Orientation Not on file documented as of this encounter Plan of Treatment Not on file documented as of this encounter Visit Diagnoses Not on filedocumented in this encounter Care Teams Boiler Installer Relationship Specialty Start Date End Date Ashok Eisenberg MD [address] [place] [address] PCP - General 06/30/20 documented as of this encounter
--- OUTSIDE RECORDS SUMMARY | 2024-04-10 13:36 | XMS_ITS | Encounter Summary ---
Author Organization [facility] Address [address] [place] [address] Care Team Providers Care Button Bradder Name Role Phone Ashok Eisenberg MD Primary Care Provider + [phone] Reason for Visit * Procedure/Equipment (Routine) - Incomplete Specialty Diagnoses / Procedures Referred By Ricki t Referred To Contact Diagnoses Cough, unspecified type SOB (shortness of breath) Procedures XR Chest 2 Views Adrian Hayes, ENVIRONMENTAL HEALTH INSPECTOR, SENIOR CREDIT ANALYST [address] [place] [address] Referral ID Status Reason Start Date Expiration Date V isits Requested Visits Authorized [id number] Incomplete 04/07/2024 07/07/2025 1 1 Encounter Details Date Type Department Care Team (Latest Contact Info) Description 04/07/2024 9:45 AM ESCROW OFFICER Ancillary Procedure [facility] [address] [place] [address] Adrian Hayes, ENVIRONMENTAL HEALTH INSPECTOR, SENIOR CREDIT ANALYST [address] [place] [address] Cough, unspecified type; SOB (shortness [...] on file documented as of this encounter Procedures Procedure Name Priority Date/Time Associated Diagnosis Comments XR CHEST 2 VIEWS STAT 04/07/2024 9:59 AM ESCROW OFFICER Cough, unspecified type SOB (shortness of breath) documented in this encounter Results * XR Chest 2 Views (04/07/2024 9:59 AM ESCROW OFFICER) Anatomical Region Laterality Modality Chest, Lung Digital Radiogra phy 04/07/2024 9:54 AM ESCROW OFFICER Narrative 04/07/2024 10:00 AM ESCROW OFFICER COMPARISON: None. FINDINGS: Normal cardiomediastinal silhouette and pulmonary vasculature. The lungs appear clear. No pneumothorax or pleural effusion. Bony thorax is unremarkable. Procedure Note Christos Zuniga MD - 04/07/2024 COMPARISON: None. FINDINGS: Normal cardiomediastinal silhouette and pulmonary vasculature.The lungs appear clear. No pneumothorax or pleural effusion. Bony thoraxis unremarkable. Adrian Hayes ENVIRONMENTAL HEALTH INSPECTOR, SENIOR CREDIT ANALYST RAD GD documented in this encounter Visit Diagnoses Diagnosis Cough, unspecified type SOB (shortness of breath) Shortness of breath documented in this encounter Care Teams Button Bradder Relationship Specialty Start Date End Date Ashok Eisenberg MD [address] [place] [address] PCP - General 06/30/20 documented as of this encounter
--- OUTSIDE RECORDS SUMMARY | 2024-04-10 13:36 | XMS_ITS | Referral Summary ---
Author Organization [facility] Address [address] [place] [address] Care Team Providers Care Chemist Physical Name Role Phone Clinic, P[facility]ja Patel Primary [...] Noted Date Diagnosed Date Behavior concern 04/13/2018 Social History Tobacco Use Types Packs/Day Years [...] on file Legal Sex Male 3:39 AM PROVIDER SCRIBE Gender Identity Not on file Sexual Orientation Not on file Last Filed Vital Signs Vital Sign Reading Time Taken Comments Blood Pressure 139/98 04/16/2018 3:58 PM PROVIDER SCRIBE Pulse 102 04/16/2018 3:58 PM PROVIDER SCRIBE Temperature 36.7 C (98 F) 04/16/2018 3:58 PM PROVIDER SCRIBE Respiratory Rate 16 04/16/2018 3:58 PM PROVIDER SCRIBE Oxygen Saturation 97% 04/14/2018 4:09 PM PROVIDER SCRIBE Inhaled Oxygen Concentration - - Weight 102.1 kg (225 lb) 04/14/2018 8:00 AM PROVIDER SCRIBE Height - - Body Mass Index - - Plan of Treatment Not on file Advance Directives For more information, please contact: [phone] * Full Code (Latest Code Status on File) Date Activated Date Inactivated Comments 04/16/2018 10:58 AM Question Answer Comments Code status determined by: Discussion with edna nt/legal decision maker * Full Code Date Activated Date Inactivated Comments 04/13/2018 4:21 AM 04/16/2018 10:58 AM Question Answer Comments Code status determined by: Discussion with edna nt/legal decision maker Care Teams Chemist Physical Relationship Specialty Start Date End Date [facility], Pooja Patel [facility] [place] [address] PCP - General 04/12/18 Ashok Eisenberg MD [facility] [address] [facility] [address] [place] [address] PCP - Mental Health/Behavioral Medicine Psychiatry 04/14/18
[2024-04-10 13:39] VITALS: BP 100/69; PULSE 96; RESP 20; TEMP 36.2; O2SAT 96; BMI 38.7
[2024-04-10 14:30] LABS: PCR FLU A POSITIVE PCR FLU A (Negative); PCR FLU B Negative PCR FLU B (Negative); PCR RSV Negative PCR RSV (Negative); SARS PCR* Negative SARS-CoV-2 (Negative)
--- NOTE | 2024-04-10 14:49 | CRLHL7_ITS ---
For Patients: As a result of the Cures Act, medical imaging exams and procedure reports are released immediately into your electronic medical record. You may view this report before your referring provider. If you have questions, please contact your health care provider. INDICATION: : SOB, chest pain COMPARISON: None TECHNIQUE: Two view(s) of the chest FINDINGS: The cardiomediastinal silhouette and pulmonary vasculature are unremarkable. There is no focal airspace consolidation, pleural effusion, or pneumothorax. No displaced fractures. IMPRESSION: No acute cardiopulmonary process. Dictated by Ish Torres MD @ 04/10/2024 3:20:35 PM (Electronically Signed)
--- NOTE | 2024-04-10 14:53 | ED.GENADULT ---
HPI - General Adult General Date Seen: 04/10/24 Chief complaint: Weakness Stated complaint: cough, weakness Time Seen by Provider: 04/10/24 13:56 Source: patient Mode of arrival: ambulatory Limitations: no limitations History of Present Illness HPI narrative: Patient is a 44-year-old male presenting to the emergency department for flu-like symptoms. States he was trying to make an appointment with the [facility] today when he was told to come to the emergency department. States since the 4th he has been having shortness of breath, lightheadedness, headache, CP, intermittent chest pain. Is not having any chest pain right now. States he thinks is very dehydrated because he has not been able to eat or drink much. Does not think he has been nauseated just feels again has no appetite. Has not noticed any fevers but has had chills. States he has a headache. He has had migraines before he states his headache does not seem nearly as bad. Thinks is also from his dehydration. Is not aware of any other sick contacts. Denies weakness, numbness, vision changes, diarrhea, constipation, abdominal pain, dysuria. No other concerns noted. Denies history of blood clots, recent surgery, hemoptysis, lower extremity swelling. Related Data Home Medications ?Medication ?Instructions ?Recorded ?Confirmed albuterol sulfate 90 mcg/actuation 1 - 2 puff inhalation Q4H PRN 04/10/24 04/10/24 aerosol inhaler wheezing Previous Rx's ?Medication ?Instructions ?Recorded amlodipine 5 mg tablet 5 mg PO QHS #90 tabs 02/07/24 hydrochlorothiazide 25 mg tablet 25 mg PO QAM #90 tabs 02/07/24 losartan 100 mg tablet 100 mg PO QDAY #90 tabs 02/07/24 Allergies Allergy/AdvReac Type Severity Reaction Status Date / Time Penicillins Allergy Mild Verified 02/07/24 14:24 Review of Systems Status of ROS: Reports: 10 or more systems reviewed and unremarkable except as noted in History and below PFSH PFS Surgical History History of dental surgery ?Z92.89 - Personal history of other medical treatment (ICD-10) History of torsion of testis ?Z87.438 - Personal history of other diseases of male genital organs (ICD-10) Social History Smoking Status: Never smoker Do you use any of these nicotine containing products: None How often do you have a drink containing alcohol: never How often do you have six or more drinks on one occasion: Never AUDIT-C Alcohol total score: 0 Non-prescribed substance use: denies use Exam Narrative: Exam Narrative: Const: Well-nourished, Well-developed, in mild distress Eyes: PERRL, no conjunctival injection, and symmetrical lids HENT: Atraumatic external nose and ears. Moist mucous membranes. Neck: Symmetric, trachea midline, No thyromegaly. CVS: RRR, No murmurs or gallops. Peripheral pulses 2+ and equal in all extremities RESP: Unlabored respiratory effort. Clear to auscultation bilaterally. GI: Nontender/Nondistended, No rebound or guarding. MSK:Extremities w/o deformity, Normal Active ROM Skin: Warm, Dry. No rashes or lesions. Neuro: Normal Muscle tone, No focal neurological deficits. Psych: Awake, Alert, & Oriented x3. Appropriate mood and affect. Const: Vital Signs, click to edit/add: Vital Signs - 24 hr 04/10/24 13:39 04/10/24 15:37 Temperature 97.2 F L Pulse Rate [Left P ulse Oximeter] 96 81 Respiratory Rate 20 18 Blood Pressure [Ri ght Upper Arm] 100/69 110/69 Pulse Oximetry 96 95 Oxygen Delivery Me thod Room Air Room Air Course Vital Signs Vital signs: Initial Vital Signs Temperature 97.2 F L 04/10/24 13:39 Temperature Source Temporal Artery Scan 04/10/24 13:39 Pulse Rate 96 04/10/24 13:39 Respiratory Rate 20 04/10/24 13:39 Blood Pressure 100/69 04/10/24 13:39 Blood Pressure Mean 79 04/10/24 13:39 Blood Pressure Position Standing 04/10/24 13:39 Pulse Oximetry 96 04/10/24 13:39 Oxygen Delivery Method Room Air 04/10/24 13:39 Vital Signs Temperature 97.2 F L 04/10/24 13:39 Pulse Rate 96 04/10/24 13:39 Respiratory Rate 20 04/10/24 13:39 Blood Pressure 100/69 04/10/24 13:39 Pulse Oximetry 96 04/10/24 13:39 Oxygen Delivery Method Room Air 04/10/24 13:39 Temperature 97.2 F L 04/10/24 13:39 Pulse Rate 81 04/10/24 15:37 Respiratory Rate 18 04/10/24 15:37 Blood Pressure 110/69 04/10/24 15:37 Pulse Oximetry 95 04/10/24 15:37 Oxygen Delivery Method Room Air 04/10/24 15:37 Medications Administered Medications: Discontinued Medications Generic Name Dose Route Start Last Admin Trade Name Corinna PRN Reason Stop Dose Admin Ondansetron HCl 4 mg 04/10/24 14:49 04/10/24 16:02 Ondansetron 2 Mg/Ml Inj IVP 04/10/24 14:50 Not Given ONCE ONE Ondansetron HCl 4 mg 04/10/24 16:00 04/10/24 15:17 Ondansetron Odt 4 Mg Tab PO 04/10/24 16:01 4 mg ONCE ONE Administration Medical Decision Making [facility] Narrative Medical decision making narrative: Patient is a 44-year-old male presenting to emergency department for flu-like symptoms. He did test positive for influenza. Is having some intermittent chest pain. There is a small concern for myocarditis who will order a into troponin. I have low concern for PE. He is PERC negative. Will do chest x-ray to look for signs of pneumonia. Did have a chest x-ray 3 days ago but seems like symptoms have gotten slightly worse. Will re-evaluate. His headache he states does not feel as bad as previous migraine syndrome to the mild. I offered him IV fluids but wants to try p.o. fluids. Will give him Zofran for any potential nausea. Also ordered a BMP and CBC. Lab work shows no concerning findings. Troponin within normal limits for do not believe repeat troponin is necessary at this time as symptoms have been going on for several days. EKG shows no concerning findings. Chest x-ray shows no acute abnormalities. All symptoms are likely from fluid this time. He is safe for discharge. He is agreeable with this plan. Lab Data Labs: Lab Results 04/10/24 04/10/24 Range/Units 13:45 15:15 WBC 5.02 (4.50-11.00) K/uL RBC 5.36 (4.30-5.90) m/uL Hgb 17.1 (13.5-17.5) gm/dL Hct 47.5 (37.0-53.0) % MCV 89 (80-100) fL MCH 32 (26-34) pg MCHC 36 (32-36) gm/dL RDW Coeff of Yovani 12.7 (11.5-15.5) % Plt Count 132 L (140-440) K/uL Neut % (Auto) 52.2 (42.0-72.0) % Lymph % (Auto) 28.3 (20-44) % Collingsworth % (Auto) 14.9 H (0.0-11.0) % Eos % (Auto) 2.8 (0.0-7.0) % Baso % (Auto) 0.6 (0.0-3.0) % Neut # (Auto) 2.62 (1.7-7.0) K/uL Lymph # (Auto) 1.42 (0.90-2.90) K/uL Collingsworth # (Auto) 0.70 (0.00-0.90) K/UL Eos # (Auto) 0.14 (0.00-0.50) K/uL Baso # (Auto) 0.03 (0.00-0.30) K/uL Abs Immat Gran (auto) 0.06 (0.00-0.30) K/uL Imm/Tot Granulo (auto) 1.2 % Sodium 132 L (135-149) mmol/L Potassium 3.5 L (3.6-5.1) mmol/L Chloride 96 (96-114) mmol/L Carbon Dioxide 28 (20-32) mmol/L Anion Gap 8 (7-15) mEq/L BUN 33 H (5-24) mg/dL Creatinine 1.7 H (0.5-1.5) mg/dL Estimated Creat Clear 57.25 Estimated GFR 50 ml/min Glucose 93 (60-115) mg/dL Calcium 8.5 (8.4-10.6) mg/dL SARS-CoV-2 (PCR) Negative SARS-CoV-2 (Negative) Influenza Type A (PCR) POSITIVE PCR FLU A A (Negative) Influenza Type B (PCR) Negative PCR FLU B (Negative) RSV (PCR) Negative PCR RSV (Negative) POC Troponin I 0.02 (0.01-0.04) ng/ml Imaging Data Chest x-ray: Attestation: I have reviewed the pertinent imaging results. Radiologist's impression: No acute cardiopulmonary process. Dictated by Ish Torres MD @ 04/10/2024 3:20:35 PM Discharge Plan Discharge Clinical Impression: Influenza Patient Disposition: Home, Self-Care Condition: Stable Instructions: Influenza (ED) Additional Instructions: Take Tylenol and ibuprofen for any pain or fevers that develop. Make sure to stay well hydrated. Return for new or worsening symptoms. Prescriptions: No Action losartan 100 mg tablet 100 mg PO QDAY Qty: 90 2RF hydrochlorothiazide 25 mg tablet 25 mg PO QAM Qty: 90 2RF amlodipine 5 mg tablet 5 mg PO QHS Qty: 90 2RF albuterol sulfate 90 mcg/actuation HFA aerosol inhaler 1 - 2 puff INHALATION Q4H PRN (Reason: wheezing) Follow Up/Referrals: Lissette Knight PA-C [Primary Care Provider] - Stand Alone Forms: [employer] Info Instructions
[2024-04-10] MEDS: ONDANSETRON ODT 4 MG TAB PO (15:17)
[2024-04-10 15:22] LABS: Basophils Absolute Auto 0.03 K/uL (0.00-0.30); Basophils Percent Auto 0.6 % (0.0-3.0); Eosinophils Absolute Auto 0.14 K/uL (0.00-0.50); Eosinophils Percent Auto 2.8 % (0.0-7.0); Hematocrit 47.5 % (37.0-53.0); Hemoglobin* 17.1 gm/dL (13.5-17.5); Immature Granulocytes Abs Auto 0.06 K/uL (0.00-0.30); Immature Granulocytes Pct Auto 1.2 %; Lymphocytes Absolute Auto 1.42 K/uL (0.90-2.90); Lymphocytes Percent Auto 28.3 % (20-44); Mean Corpuscular HGB Conc 36 gm/dL (32-36); Mean Corpuscular Hemoglobin 32 pg (26-34); Mean Corpuscular Volume 89 fL (80-100); Monocytes Percent Auto 14.9 % (0.0-11.0); Neutrophils Absolute Auto 2.62 K/uL (1.7-7.0); Neutrophils Percent Auto 52.2 % (42.0-72.0); Platelet Count* 132 K/uL (140-440); RDW Coefficient of Variation % 12.7 % (11.5-15.5); Red Blood Count 5.36 m/uL (4.30-5.90); White Blood Count* 5.02 K/uL (4.50-11.00)
[2024-04-10 15:25] LABS: Slide Review Reflex No
[2024-04-10 15:26] LABS: Troponin, Point-of-Care* 0.02 ng/ml (0.01-0.04)
--- OUTSIDE RECORDS SUMMARY | 2024-04-10 15:32 | XMS_ITS | Encounter Summary ---
Author Organization [facility] Address [address] [place] [address] Care Team Providers Care Wellness Ambassador Name Role Phone Ashok Eisenberg MD Primary Care Provider + [phone] Reason for Visit * Procedure/Equipment (Routine) - Incomplete Specialty Diagnoses / Procedures Referred By Ricki t Referred To Contact Diagnoses Cough, unspecified type SOB (shortness of breath) Procedures XR Chest 2 Views Adrian Hayes, MONUMENT STONECUTTER, MEDICAL IMAGING TECHNICIAN [address] [place] [address] Referral ID Status Reason Start Date Expiration Date V isits Requested Visits Authorized [id number] Incomplete 04/07/2024 07/07/2025 1 1 Encounter Details Date Type Department Care Team (Latest Contact Info) Description 04/07/2024 9:45 AM MACHINING SUPERVISOR Ancillary Procedure [facility] [address] [place] [address] Adrian Hayes, MONUMENT STONECUTTER, MEDICAL IMAGING TECHNICIAN [address] [place] [address] Cough, unspecified type; SOB (shortness [...] CHEST 2 VIEWS STAT 04/07/2024 9:59 AM MACHINING SUPERVISOR Cough, unspecified type SOB (shortness of breath) documented in this encounter Results * XR Chest 2 Views (04/07/2024 9:59 AM MACHINING SUPERVISOR) Anatomical Region Laterality Modality Chest, Lung Digital Radiogra phy 04/07/2024 9:54 AM MACHINING SUPERVISOR Narrative 04/07/2024 10:00 AM MACHINING SUPERVISOR COMPARISON: None. FINDINGS: Normal cardiomediastinal silhouette and pulmonary vasculature. The lungs appear clear. No pneumothorax or pleural effusion. Bony thorax is unremarkable. Procedure Note Christos Zuniga MD - 04/07/2024 COMPARISON: None. FINDINGS: Normal cardiomediastinal silhouette and pulmonary vasculature.The lungs appear clear. No pneumothorax or pleural effusion. Bony thoraxis unremarkable. Adrian Hayes MONUMENT STONECUTTER, MEDICAL IMAGING TECHNICIAN RAD GD documented in this encounter Visit Diagnoses Diagnosis Cough, unspecified type SOB (shortness of breath) Shortness of breath documented in this encounter Care Teams Wellness Ambassador Relationship Specialty Start Date End Date Ashok Eisenberg MD [address] [place] [address] PCP - General 06/30/20 documented as of this encounter
--- OUTSIDE RECORDS SUMMARY | 2024-04-10 15:32 | XMS_ITS | Encounter Summary ---
Author Organization [facility] Address [address] [place] [address] Care Team Providers Care Financial Operations Clerk Name Role Phone Clinic, [facility]ja Patel Primary Care Provide r Ashok Eisenberg MD Unavailable Reason for Visit * Reason Onset Date Comments Outpatient 04/16/2018 IOP ref from Encounter Details Date Type Department Care Team (Late st Contact Info) Description 04/16/2018 Telephone [facility] Health Intake [address] [place] [phone] Generic, Behavioral Intake, Outpatient (IOP ref from [...] on file Legal Sex Male 3:39 AM ROBOTIC WELDING OPERATOR Gender Identity Not on file Sexual Orientation Not on file documented as of this encounter Miscellaneous Notes * Telephone Encounter - Sue Patel - 04/16/2018 2:10 PM CST S-Call from [facility] requesting referral to be set up. B-Pt was admitted to [facility] under Dr Arzate's care. A-IOP referral. Discharged today. R-[employer] benefits. Referral made to IOP. TIC WELDING OPERATOR documented in this encounter Plan of Treatment Not on file documented as of this encounter Visit Diagnoses Not on filedocumented in this encounter Care Teams Financial Operations Clerk Relationship Specialty Start Date End Date Clinic, Pooja Greeley [facility] [place], [place] [id number] PCP - General 04/12/18 Ashok Eisenberg MD [facility] [address] [facility] [address] [place] [address] PCP - Mental Health/Behavioral Medicine Psychiatry 04/14/18 documented as of this encounter
--- OUTSIDE RECORDS SUMMARY | 2024-04-10 15:32 | XMS_ITS | Clinical Summary ---
Author Organization [facility] Address [place], [place] [address] Care Team Providers Care Public Services Librarian Name Role Phone Pcp, No Primary Care [...] on file Legal Sex Male 7:02 AM BUYING AGENT Gender Identity Not on file Sexual Orientation Not on file Occupation Industry Job Start Date Job End Date Not on file Not on file Not on file Not on file Obstetrics History Last Filed Vital Signs Vital Sign Reading Time Taken Comments Blood Pressure 140/90 02/21/2019 1:19 PM BUYING AGENT Pulse 84 02/21/2019 1:19 PM BUYING AGENT Temperature 36.7 C (98.1 F) 02/27/2017 4:53 PM BUYING AGENT Respiratory Rate 16 02/21/2019 1:19 PM BUYING AGENT Oxygen Saturation 98% 07/06/2017 8:53 AM CDT Inhaled Oxygen Concentration - - Weight 108.9 kg (240 lb) 02/21/2019 1:19 PM BUYING AGENT Height 177.8 cm (5' 10) 02/21/2019 1:19 PM BUYING AGENT Body Mass Index 34.44 02/21/2019 1:19 PM BUYING AGENT Plan of Treatment Health Maintenance Due Date [...] REFLEX MEASURED LDL Routine 05/20/2014 10:13 AM BUYING AGENT Hyperlipidemia from Last 3 Months or Most Recently Relevant to Health Maintenance Results * (ABNORMAL) LIPID PANEL W REFLEX MEASURED LDL (05/20/2014 10:13 AM BUYING AGENT) CHOLESTEROL,TOTAL 238(H) 100 - 199 mg/dL 05/20/2014 11:04 AM [facility] TRIGLYCERIDES 498(H) <150 mg/dL 05/20/2014 11:04 AM [facility] HDL CHOLESTEROL 36(L) >40 mg/dL 5 11:04 AM [facility] NON-HDL CHOLESTEROL 202(H) <145 mg/dl 05/20/2014 11:04 AM [facility] CHOL/HDL RATIO 6.61(H) <4.50 05/20/2014 11:04 AM [facility] LDL CHOLESTEROL 5 11:04 AM [facility] Comment:Invalid LDL when Tri g >400, reflexed to measured LDL PATIENT STATUS NON-FASTI NG 05/20/2014 11:04 AM [facility] Blood specimen (specimen) BLOOD SPECIMEN / Unknown Venipuncture / Unknown 05/20/2014 10:13 AM BUYING AGENT 05/20/2014 10:14 AM BUYING AGENT us Hemant Mccauley MD CHEMISTRY Final Resul t [facility] [address] [place] [address], [place] [phone] from Last 3 Months or Most Recently Relevant to Health Maintenance Insurance FED EMP FED EMP * Guarantor: TOSHA RYAN ONLY Account Type Relation to Patient Date of Phone Billing Address [facility] [address] [place] [address] * Guarantor: ARCHIE DOMÍNGUEZ Account Type Relation to Patient Date of Phone Billing Address [facility] [address] [address] * Guarantor: TOSHA YOUNG Account Type Relation to Patient Date of Phone Billing Address [facility] [address] [place] [address] Care Teams Public Services Librarian Relationship Specialty Start Date End Date Pcp, No . PCP - General 07/10/20
--- OUTSIDE RECORDS SUMMARY | 2024-04-10 15:32 | XMS_ITS | Encounter Summary ---
Author Organization [facility] Address [address] [place] [address] Care Team Providers Care Supervisor Whipped Topping Name Role Phone Ashok Eisenberg MD Primary Care Provider + [phone] Encounter Details Date Type Department Care Team (Late st Contact Info) Description 12/19/2016 Scanned History External to External, [place] [address] [facility] REPORT Social History Tobacco Use Types [...] filedocumented in this encounter Care Teams Supervisor Whipped Topping Relationship Specialty Start Date End Date Ashok Eisenberg MD [address] [place] [address] PCP - General 06/30/20 documented as of this encounter
--- OUTSIDE RECORDS SUMMARY | 2024-04-10 15:32 | XMS_ITS | Clinical Summary ---
Author Organization [facility] Address [address] [place] [address] Care Team Providers Care Tour Manager Name Role Phone Clinic, Pooja Patel Primary Care Provide r Ashok Eisenberg MD Unavailable [phone] Allergies Active Allergy Reactions Criticality Noted Date [...] on file Legal Sex Male 3:39 AM HUMANITIES COORDINATOR Gender Identity Not on file Sexual Orientation Not on file Last Filed Vital Signs Vital Sign Reading Time Taken Comments Blood Pressure 139/98 04/16/2018 3:58 PM HUMANITIES COORDINATOR Pulse 102 04/16/2018 3:58 PM HUMANITIES COORDINATOR Temperature 36.7 C (98 F) 04/16/2018 3:58 PM HUMANITIES COORDINATOR Respiratory Rate 16 04/16/2018 3:58 PM HUMANITIES COORDINATOR Oxygen Saturation 97% 04/14/2018 4:09 PM HUMANITIES COORDINATOR Inhaled Oxygen Concentration - - Weight 102.1 kg (225 lb) 04/14/2018 8:00 AM HUMANITIES COORDINATOR Height - - Body Mass Index - - Plan of Treatment Not on file Advance Directives For more information, please contact: [phone] * Full Code (Latest Code Status on File) Date Activated Date Inactivated Comments 04/16/2018 10:58 AM Question Answer Comments Code status determined by: Discussion with edna nt/legal decision maker * Full Code Date Activated Date Inactivated Comments 04/13/2018 4:21 AM 04/16/2018 10:58 AM Question Answer Comments Code status determined by: Discussion with edna nt/legal decision maker Care Teams Tour Manager Relationship Specialty Start Date End Date Clinic, Pooja Patel [facility] [place] [address] PCP - General 04/12/18 Ashok Eisenberg MD [facility] [address] [facility] [address] [place] [address] PCP - Mental Health/Behavioral Medicine Psychiatry 04/14/18
--- OUTSIDE RECORDS SUMMARY | 2024-04-10 15:32 | XMS_ITS | Encounter Summary ---
Author Organization [facility] Address [address] [place] [address] Care Team Providers Care Director Of National Sales Name Role Phone Ashok Eisenberg MD Primary Care Provider + [phone] Encounter Details Date Type Department Care Team [...] on filedocumented in this encounter Care Teams Director Of National Sales Relationship Specialty Start Date End Date Ashok Eisenberg MD [address] [place] [address] PCP - General 06/30/20 documented as of this encounter
--- OUTSIDE RECORDS SUMMARY | 2024-04-10 15:32 | XMS_ITS | Clinical Summary ---
Author Organization [email or web address] Address [address] [place] [address] Care Team Providers Care Resource Conservation Specialist Name Role Phone Ashok Eisenberg MD Primary Care Provider + [phone] Source Comments You are receiving this document as you are listed as the primary care provider,follow-up provider, or the patient has been referred to you for consultation.This is in compliance with the Medicare andMer[facility] Health Will[facility] Hospitalcaid EHR Incentive Program,which states Providers who transition their patient to another setting of careor provider of care or refers their patient to another provider of care shouldprovide summary care record for each transition of care or referral. [email or web address] Allergies Active Allergy Reactions Criticality Noted Date [...] Department Care Team Description 04/07/2024 9:45 AM VENDING ENTERPRISES SUPERVISOR Ancillary Procedure [facility] [address] [place] [address] Adrian Hayes, AVIATION SAFETY TECHNICIAN, QUALITY ASSURANCE ADVISOR Cough, unspecified type; SOB (shortness of breath) 04/07/2024 9:40 AM VENDING ENTERPRISES SUPERVISOR Office Visit [facility] [address] [facility] [address] [place] [phone] Adrian Hayes, AVIATION SAFETY TECHNICIAN, QUALITY ASSURANCE ADVISOR Cough, unspecified type; SOB (shortness of breath) 04/07/2024 Nurse Triage [place] [address] [address] [place] [phone] Needs Pcp, Assignment SOB (SHORTNESS OF BREATH) [...] Comments Blood Pressure 136/81 04/07/2024 8:48 AM VENDING ENTERPRISES SUPERVISOR Pulse 102 04/07/2024 8:48 AM VENDING ENTERPRISES SUPERVISOR Temperature 37.4 C (99.3 F) 04/07/2024 8:48 AM VENDING ENTERPRISES SUPERVISOR Respiratory Rate 20 04/07/2024 8:48 AM VENDING ENTERPRISES SUPERVISOR Oxygen Saturation 93% 04/07/2024 8:48 AM VENDING ENTERPRISES SUPERVISOR Inhaled Oxygen Concentration - - Weight 100.7 kg (222 lb) 04/09/2018 7:33 PM VENDING ENTERPRISES SUPERVISOR Height 177.8 cm (5' 10) 04/09/2018 7:33 PM VENDING ENTERPRISES SUPERVISOR Body Mass Index 31.85 04/09/2018 7:33 PM VENDING ENTERPRISES SUPERVISOR Plan of Treatment Health Maintenance Due Date [...] CHEST 2 VIEWS STAT 04/07/2024 9:59 AM VENDING ENTERPRISES SUPERVISOR Cough, unspecified type SOB (shortness of breath) from Last 3 Months Results * XR Chest 2 Views (04/07/2024 9:59 AM VENDING ENTERPRISES SUPERVISOR) Anatomical Region Laterality Modality Chest, Lung Digital Radiogra phy 04/07/2024 9:54 AM VENDING ENTERPRISES SUPERVISOR Narrative 04/07/2024 10:00 AM VENDING ENTERPRISES SUPERVISOR COMPARISON: None. FINDINGS: Normal cardiomediastinal silhouette and pulmonary vasculature. The lungs appear clear. No pneumothorax or pleural effusion. Bony thorax is unremarkable. Procedure Note Christos Zuniga MD - 04/07/2024 COMPARISON: None. FINDINGS: Normal cardiomediastinal silhouette and pulmonary vasculature.The lungs appear clear. No pneumothorax or pleural effusion. Bony thoraxis unremarkable. Adrian Hayes AVIATION SAFETY TECHNICIAN, QUALITY ASSURANCE ADVISOR RAD GD from Last 3 Months Advance Directives * Full Code (Latest Code Status on File) Date Activated Date Inactivated Comments 04/09/2018 6:38 PM 04/11/2018 2:22 PM * Full Code Date Activated Date Inactivated Comments 02/28/2017 2:58 PM 03/03/2017 2:57 PM Care Teams Resource Conservation Specialist Relationship Specialty Start Date End Date Ashok Eisenberg MD [address] [place] [address] PCP - General 06/30/20
--- OUTSIDE RECORDS SUMMARY | 2024-04-10 15:32 | XMS_ITS | Referral Summary ---
Author Organization [facility] Address [address] [place] [address] Care Team Providers Care Diesel Power Shovel Operator Name Role Phone Clinic, [facility] Primary [...] on file Legal Sex Male 3:39 AM VENDING MANAGER Gender Identity Not on file Sexual Orientation Not on file Last Filed Vital Signs Vital Sign Reading Time Taken Comments Blood Pressure 139/98 04/16/2018 3:58 PM VENDING MANAGER Pulse 102 04/16/2018 3:58 PM VENDING MANAGER Temperature 36.7 C (98 F) 04/16/2018 3:58 PM VENDING MANAGER Respiratory Rate 16 04/16/2018 3:58 PM VENDING MANAGER Oxygen Saturation 97% 04/14/2018 4:09 PM VENDING MANAGER Inhaled Oxygen Concentration - - Weight 102.1 kg (225 lb) 04/14/2018 8:00 AM VENDING MANAGER Height - - Body Mass Index - - Plan of Treatment Not on file Advance Directives For more information, please contact: [phone] * Full Code (Latest Code Status on File) Date Activated Date Inactivated Comments 04/16/2018 10:58 AM Question Answer Comments Code status determined by: Discussion with edna nt/legal decision maker * Full Code Date Activated Date Inactivated Comments 04/13/2018 4:21 AM 04/16/2018 10:58 AM Question Answer Comments Code status determined by: Discussion with edna nt/legal decision maker Care Teams Diesel Power Shovel Operator Relationship Specialty Start Date End Date [facility], Pooja Patel [facility] [place] [address] PCP - General 04/12/18 Ashok Eisenberg MD [facility] [address] [facility] [address] [place] [address] PCP - Mental Health/Behavioral Medicine Psychiatry 04/14/18
--- OUTSIDE RECORDS SUMMARY | 2024-04-10 15:32 | XMS_ITS | Encounter Summary ---
Author Organization [facility] Address [address] [place] [address] Care Team Providers Care Tube Depatcher Name Role Phone Ashok Eisenberg MD Primary Care Provider + [phone] Reason for Referral * Procedure/Equipment (Routine) - Incomplete Specialty Diagnoses / Procedures Referred By Contdora t Referred To Contact Diagnoses Cough, unspecified type SOB (shortness of breath) Procedures XR Chest 2 Views Adrian Hayes, NICOLE, DIRECTOR OF LOSS PREVENTION [address] [place] [address] Referral ID Status Reason Start Date Expiration Date V isits Requested Visits Authorized [id number] Incomplete 04/07/2024 07/07/2025 1 1 PROJECT MANAGER Reason for Visit * Reason Comments SOB (SHORTNESS OF BREATH) SOB came on , getting worse as of this morning, cough began yesterday, came on suddenly, no fever Denies chest pain, no cardiac hx Encounter Details Date Type Department Care Team (Late st Contact Info) Description 04/07/2024 9:40 AM JAVA PROJECT MANAGER Office Visit [place] [address] [facility] [address] [place] [phone] Adrian Hayes, NICOLE, DIRECTOR OF LOSS PREVENTION [address] [place] [address] Cough, unspecified type; SOB (shortness [...] Comments Blood Pressure 136/81 04/07/2024 8:48 AM JAVA PROJECT MANAGER Pulse 102 04/07/2024 8:48 AM JAVA PROJECT MANAGER Temperature 37.4 C (99.3 F) 04/07/2024 8:48 AM JAVA PROJECT MANAGER Respiratory Rate 20 04/07/2024 8:48 AM JAVA PROJECT MANAGER Oxygen Saturation 93% 04/07/2024 8:48 AM JAVA PROJECT MANAGER Inhaled Oxygen Concentration - - Weight - - Height - - Body Mass Index - - documented in this encounter Patient Instructions * Patient Instructions* Adrian Hayes, NICOLE, DIRECTOR OF LOSS PREVENTION - 04/07/2024 9:40 AM JAVA PROJECT MANAGER *You may use ppav-avr-widxakm cough and cold medicine such as DayQuil [...] be a allergy component and try an uzxr-uvr-ndtfcxy antihistamine such as Zyrtec, Lois, Xyzal, or [...] days if noimprovement or sooner if worsening. PROJECT MANAGER documented in this encounter Progress Notes * Adrian Hayes APRN, CNP - 04/07/2024 9:40 AM CST Ish Potts [...] mg We discussed contagiousness. You may use gbaa-gjh-lamlssc cough and cold medicine such as DayQuil and NyQuil or their generic equivalents. For nasal congestion you may add and pseudoephedrine (short acting). Often even if you do not have known allergies there may be a allergy component and try an ov ma-eiv-veobnxt antihistamine such as Zyrtec, Lois, Xyzal, or [...] require antibiotics. Otherwise follow-up on my chart. PROJECT MANAGER documented in this encounter Nursing Notes * Yojana Lucas RN - 04/07/2024 9:40 AM CST Ish Potts is a 44 y.o.male presents to the Urgent Care for SOB (SHORTNESS OF BREATH) (SOB came on yesterday, getting worse as of this morning, cough began yesterday, came on suddenly, no fever //Denies chest pain, no cardiac hx ) PROJECT MANAGER documented in this encounter Plan of Treatment Not on file documented as of this encounter Results * XR Chest 2 Views (04/07/2024 9:59 AM JAVA PROJECT MANAGER) Anatomical Region Laterality Modality Chest, Lung Digital Radiogra phy 04/07/2024 9:54 AM JAVA PROJECT MANAGER Narrative 04/07/2024 10:00 AM JAVA PROJECT MANAGER COMPARISON: None. FINDINGS: Normal cardiomediastinal silhouette and pulmonary vasculature. The lungs appear clear. No pneumothorax or pleural effusion. Bony thorax is unremarkable. Procedure Note Christos Zuniga MD - 01/05/2025 COMPARISON: None. FINDINGS: Normal cardiomediastinal silhouette and pulmonary vasculature.The lungs appear clear. No pneumothorax or pleural effusion. Bony thoraxis unremarkable. Adrian Hayes APRN, DIRECTOR OF LOSS PREVENTION RAD GD documented in this encounter Visit [...] VIA RT Nebulization Given 04/07/2024 9:46 AM JAVA PROJECT MANAGER 2.5 mg documented in this encounter Care Teams Tube Depatcher Relationship Specialty Start Date End Date Ashok Eisenberg MD [address] [place] [address] PCP - General 06/30/20 documented as of this encounter
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
--- OUTSIDE RECORDS SUMMARY | 2024-04-10 15:32 | XMS_ITS | Encounter Summary ---
Author Organization [facility] Address [address] [place] [address] Care Team Providers Care Power Generation Plant Operator Name Role Phone Ashok Eisenberg MD Primary Care Provider + [phone] Reason for Visit * Reason Comments SOB (SHORTNESS OF BREATH) Encounter Details Date Type Department Care Team (Late st Contact Info) Description 04/07/2024 Nurse Triage [place] [address] [facility] [address] [place] [phone] Needs Pcp, [place], [place] [address] SOB (SHORTNESS OF BREATH) Social History Tobacco [...] or WORSE than normal Protocols used: Breathing Nvrgmzpypv-NJCTJ-SA Pt called states that he developed a cough and now has shortness of breath. Pt states that he is unable to take a deep breath and he feels lightheaded. Pt agrees with the plan to be seen now. NEERING ANALYST * Roxi Gagnon - 04/07/2024 8:12 AM CST Symptoms Describe your symptoms (if pain, include location): Cough and SOB When did they start? Yesterday Additional comments (related to the above concern): Is it okay to leave a detailed message on your voicemail? Yes Insurance verified and confirmed with patient? Insurance/information not available at time of the call NEERING ANALYST documented in this encounter Plan of Treatment Not on file documented as of this encounter Visit Diagnoses Not on filedocumented in this encounter Care Teams Power Generation Plant Operator Relationship Specialty Start Date End Date Ashok Eisenberg MD [address] [place] [id number] PCP - General 06/30/20 documented as of this encounter
--- OUTSIDE RECORDS SUMMARY | 2024-04-10 15:32 | XMS_ITS | Encounter Summary ---
Author Organization [facility] Address [address] [place] [address] Care Team Providers Care Body And Frame Man Name Role Phone Ashok Eisenberg MD Primary Care Provider + [phone] Encounter Details Date Type Department Care Team [...] on filedocumented in this encounter Care Teams Body And Frame Man Relationship Specialty Start Date End Date Ashok Eisenberg MD [address] [place] [id number] PCP - General 06/30/20 documented as of this encounter
[2024-04-10 15:34] LABS: Chloride* 96 mmol/L (96-114); Potassium* 3.5 mmol/L (3.6-5.1); Sodium* 132 mmol/L (135-149)
[2024-04-10 15:37] VITALS: BP 110/69; PULSE 81; RESP 18; O2SAT 95
[2024-04-10 15:37] LABS: Anion Gap 8 mEq/L (7-15); Blood Urea Nitrogen* 33 mg/dL (5-24); Carbon Dioxide* 28 mmol/L (20-32); Creatinine* 1.7 mg/dL (0.5-1.5); Est. Creatinine Clearance* 57.25; Estimated Glomerular Filt Rate 50 ml/min
[2024-04-10 15:38] LABS: Calcium* 8.5 mg/dL (8.4-10.6); Glucose* 93 mg/dL (60-115)
== END 2024-04-10 16:20 | disposition home or self-care (01) ==
PROVIDERS: Emergency Provider Student in an Organized Health Care Education/Training Program; PCP Physician Assistant Medical
DX: J11.1 Influenza due to unidentified influenza virus with other respiratory manifestations (principal)
CPT/HCPCS: 36415; 71046; 80048; 84484; 85025; 87631; 93005; 96374; 99283; 99284; 99285; A9270